=== PATIENT | female | born 1965 | race Caucasian/White ===

== ENCOUNTER 2016-10-27 08:16 | Emergency (ER) | payer BC, OTHER ==
--- NOTE | ~2016-10-27 | CR20 ---
[facility] A Service of [facility] [place] RADIOLOGY TEXT RESULTS PATIENT: ABHINAV RINCON LOCATION: SED : 63 UNIT #: [id number] AGE: [address]: Richard Villa MD SEX: F ORDER DR: [id number] [place] [id number] MR#: [id number] Acc #: [id number] NAME: ABHINAV RINCON : 1965 SEX: F STUDY DATE/TIME: 10/27/2016 8:42 UNIT: SED ROOM: STUDY DESCRIPTION: CR Ankle Min 3 Views Lt Attending Physician: Richard Villa M.D. Ordering Physician: Richard Villa M.D. Primary Care Physician: Aurelia Gonzalez M.D. MEDICAL IMAGING REPORT This report is preliminary unless electronic signature is present. EXAM Left ankle, 10/27/2016 INDICATION 51-year-old female with injury yesterday mowing grass. Pain in the inner ankle region. Symptoms began yesterday. TECHNIQUE 3 views of the left ankle. COMPARISON No comparisons. FINDINGS Embedded in the posterior soft tissues of the left ankle, localizing medially, there is a 6.0 mm retained opaque metallic foreign body present. It is best demonstrated on the frontal and oblique views and seen en face on the lateral projection. No associated fracture. Ankle mortise intact. Probable vascular calcifications posterior to the tibia and fibula. IMPRESSION 6.0 mm retained opaque metallic foreign body embedded in the posterior medial soft tissues of the left ankle. Correlate with physical exam. No acute fracture. STAT * RESULT Dictated by... Marques Oneil M.D. THIS IS AN ELECTRONICALLY VERIFIED REPORT [facility] A Service of [facility] [place] RADIOLOGY TEXT RESULTS PATIENT: ABHINAV RINCON LOCATION: SED : 63 UNIT #: [id number] AGE: [address]: Richard Villa MD SEX: F ORDER DR: Marques Oneil M.D. at 10/27/2016 5:00 PM FLORA/[place] TD: 10/27/2016 09:06 JOB #: [id number] MEDICAL IMAGING REPORT Page 1 of 1
[~2016-10-27 08:16] MED LIST: ADVAIR INH; ALBUTEROL17 GM INH; BENZONATATE PO; DETROL LA PO; DETROL1 MG PO; ESTRATEST TABLE1 TAB PO; LEVAQUIN PO; LORTAB 5/500 TA1 TA1 PO; NO MEDICATIONS; PREDNISONE PO; TAGAMET; TAGAMET200 MG PO; TRAMADOL HCL50 M2 PO; ULTRAM PO; VICODIN 5/1 TAB 5/50 PO; VITAMIN B12 PO; ZANAFLEX2 MG PO; ZOVIRAX200 MG DOB; ZOVIRAX800 MG PO
[2016-10-27] MEDS ORDERED: MULTIVITAMINS1 EAC3 PO (08:27)
[2016-10-27 09:07] LABS: BASOPHIL# 0.1 X10e3 (0-0.3); BASOPHIL% 0.8 % (0-2.5); DIFF IND NO; EOSINOPHIL# 0.1 X10e3 (0-0.7); EOSINOPHIL% 1.1 % (0.0-7.0); HEMATOCRIT 41.2 % (35.0-45.0); HEMOGLOBIN 14.2 gm/dL (12.0-16.0); LYMPHOCYTE# 2.1 X10e3 (1.0-3.5); LYMPHOCYTE% 21.1 % (17.0-45.0); MEAN CELL VOLUME 95.1 FL (83-96); MEAN CORPUSCULAR HEMOGLOBIN 32.8 PG (28-34); MEAN CORPUSCULAR HGB CONC 34.5 g/dL (30-36); MEAN PLATELET VOLUME 7.9 FL (6.5-11.5); MONOCYTE# 0.7 X10e3 (0-1.0); MONOCYTE% 6.6 % (3.0-12.0); NEUTROPHIL# 7.1 X10e3 (1.5-7.1); NEUTROPHIL% 70.4 % (40-75); PLATELET COUNT 277 X10e3 (140-420); RED BLOOD COUNT 4.33 X10e (3.90-5.30); RED CELL DISTRIBUTION WIDTH 12.5 % (11.0-15.5)
[2016-10-27 09:13] LABS: PROTHROMBIN TIME (PATIENT) 10.8 SECONDS (9.5-12.4)
[2016-10-27 09:20] LABS: PARTIAL THROMBOPLASTIN TIME 29.9 SECONDS (25.6-38.1)
[2016-10-27 09:21] LABS: BUN/CREATININE RATIO 13.75; CALCIUM SERUM 9.2 mg/dL (8.4-10.2); CREATININE SERUM 0.8 mg/dL (0.6-1.4); GLOM FILT RATE Estimated 84.8 mL/min (>60); POTASSIUM 4.4 mmol/L (3.5-5.1)
== END 2016-10-27 10:44 | disposition home or self-care (01) ==
LOC: SED 08:16
PROVIDERS: Emergency Medicine
DX: S91.042A Puncture wound with foreign body, left ankle, initial encounter (principal); W22.8XXA Striking against or struck by other objects, initial encounter; Y92.9 Unspecified place or not applicable
CPT/HCPCS: 29515; 36415; 73610; 80048; 85025; 85610; 85730; 99283; 99284